=== PATIENT | female | born 1990 | race African-American/Black ===

== ENCOUNTER 2024-09-02 08:37 | Emergency (ER) | payer OTHER, SELFPAY ==
[2024-09-02 08:50] VITALS: BP 116/75; PULSE 100; RESP 16; TEMP 36.3; O2SAT 95; BMI 27.8
[2024-09-02 09:20] LABS: IDNOW Serial# 58CA691E; Strep A Nucleic Acid Negative (Negative)
[2024-09-02 10:02] LABS: Influenza A PCR NEGATIVE (Negative); Influenza B PCR NEGATIVE (Negative); Resp Syncy Virus RNA Qual PCR NEGATIVE (Negative); SARS COV2 PCR INHOUSE NEGATIVE (Negative)
--- NOTE | 2024-09-02 10:46 | ED.GENADULT ---
HPI - General Adult General Chief complaint: General Medical Stated complaint: sore throat Time Seen by Provider: 09/02/24 10:46 Source: patient and RN notes reviewed Mode of arrival: ambulatory Limitations: no limitations History of Present Illness ED Provider: Diana Del Real PA-C HPI narrative: This is a 34-year-old female who presents emergency department for evaluation of throat pain which began 2 days ago. Patient feels as though she was strep throat. No known sick contacts. Patient reports that she shared drink with an individual in his concerned that she picked up a bacterial infection. She denies any fevers, chills, chest pain, shortness of breath, cough, abdominal pain, nausea, vomiting or diarrhea. Patient reports that she was still able to swallow however endorses pain. She did not take any medications prior to her arrival today. Denies any profound fatigue. No sick contacts. No other complaints or concerns at this time. MD complaint: Sore throat Onset (ago): day(s) Severity: mild Quality: aching Pain Consistency: constant Relieving factors: none Exacerbating factors: none Associated symptoms: denies other symptoms Treatments prior to arrival: none Related Data Previous Rx's ?Medication ?Instructions ?Recorded acetaminophen 500 mg tablet 1,000 mg (2 x 500 mg) PO Q8H PRN 09/02/24 (Tylenol Extra Strength) pain #30 tabs amoxicillin 500 mg capsule 500 mg PO BID 10 days #20 caps 09/02/24 ibuprofen 600 mg tablet 600 mg PO Q6H PRN fever or pain 09/02/24 #30 tabs Allergies Allergy/AdvReac Type Severity Reaction Status Date / Time No Known Allergies Allergy Verified 09/02/24 08:50 [No Known Allergies*] Review of Systems Review of Systems: Constitutional: No Weight loss, No Fever, No Chills, No Night Sweats, No Fatigue, No Malaise ENT/Mouth: No Hearing loss, No Ear Pain, No Nasal Congestion, No Sinus Pain, No Hoarseness, + sore throat, No Rhinorrhea, No Swallowing Difficulty Eyes: No Eye Pain, No Swelling, No Redness, No Foreign Body, No Discharge, No Vision Changes Cardiovascular: No Chest Pain, No SOB, No Dyspnea on Exertion, No Orthopnea, No Edema, No Palpitations Respiratory: No Cough, No Sputum, No Wheezing, No Smoke Exposure, No Dyspnea Gastrointestinal: No Nausea, No Vomiting, No Diarrhea, No Constipation, No Abdominal pain, No Hematochezia, No Melena Genitourinary: No irregular bleeding, No Dysuria, No Urinary Frequency, No Hematuria, No Urinary Incontinence/retention, No Urgency, No Flank Pain, No Urinary Flow Changes, No Hesitancy Musculoskeletal: No joint pain, No Myalgias, No Joint Swelling Skin: No Skin Lesions, No rash Neuro: No Weakness, No Numbness, No Paresthesias, No Loss of Consciousness, No Dizziness, No Headache Psych: No Anxiety/Panic, No Depression, No SI/HI/AH/VH, No Social Issues, Heme/Lymph: No Bruising, No Bleeding,No Lymphadenopathy Endocrine: No Polyuria, No Polydipsia, No Temperature Intolerance Yes all other systems are reviewed and are negative Constitutional: Constitutional: Reports as per [facility] Social History Social History Advance Directives: No Advance Directives Information Provided: Yes Do you have a plan to hurt others: No Plan Physical Exam ED Vital Signs: Vital Signs - 24 hr 09/02/24 08:50 Temperature 97.3 F Pulse Rate 100 Respiratory Rate 16 Blood Pressure 116/75 Pulse Oximetry 95 Oxygen Delivery Method Room Air BMI result Body Mass Index 27.8 Const General: cooperative, comfortable and no acute distress Orientation/consciousness: patient oriented x3 Limitations: no limitations HENMT Other: Bilateral tonsils are exudative, and 1+ bilaterally. Uvula is midline. Posterior oropharynx is erythematous. Airway is widely patent. No trismus, drooling, or dysphonia. Anterior cervical lymphadenopathy noted. Head: Yes normal to inspection, Yes normocephalic and Yes atraumatic Ears: hearing grossly normal bilaterally General nose exam: Normal external nose present Face and sinus: Yes normal facial exam Eyes General: appearance normal, both eyes and all related structures Eyelids: Yes eyelids normal Conjunctivae: conjunctivae normal Sclerae: sclerae normal Pupils: Equal, round and reactive pupils present EOM: EOMs intact bilaterally Neck Neck: Yes normal visual inspection, Yes full ROM and Yes no lymphadenopathy Lymphatic: no lymphadenopathy noted Chest Chest palpation & inspection: normal inspection of the chest Resp Effort & Inspection: normal respiratory effort and able to speak in complete sentences Auscultation: clear to auscultation bilaterally, no crackles, no rales, no rhonchi and no wheezes Cardio Rate: regular rate Rhythm: regular rhythm Heart sounds: S1 normal heart sound present and S2 normal heart sound present GI Inspection: Yes normal to inspection Skin General skin exam: no rashes or lesions noted Trauma: no lacerations or abrasions Wounds: no wounds Neuro General: patient oriented x3 and moves all extremities Cranial nerves: Yes Equal, round and reactive pupils present Extrem General: Yes normal to inspection Right upper extremity: normal to inspection Left upper extremity: normal to inspection Right lower extremity: normal to inspection Left lower extremity: normal to inspection Medical Decision Making Medical Decision Making [facility] Narrative: This is a 34-year-old female who presents emergency department for evaluation of sore throat which started 2 days ago. On arrival, vital signs within normal limits. She is speaking full sentences under no acute distress. Posterior oropharynx is erythematous and exudative. Differential diagnoses include strep pharyngitis, tonsillitis, COVID, flu, [employer]. Uvula is midline. She has handling secretions well without any difficulty. Viral swabs were obtained as well as strep swab which were negative. Patient also expressing concerns for sexually transmitted infection, will obtain gonorrhea and chlamydia testing however she states that she was concerned for this as she shared a drink, this is unlikely the process. Likely bacterial tonsillitis. Will treat with amoxicillin. Given a dose of Decadron in the department today. Advised to alternate between ibuprofen and or Tylenol as needed for pain and fevers. Advised to take the full course of antibiotics. Given strict return precautions. She understands and agrees with plan. Patient stable for discharge. Differential Diagnosis Differential Diagnoses: The differential diagnosis associated with the presentation includes See above Lab Data [facility] Lab Attestation statement: I reviewed the patient's lab results. Negative Labs: Lab Results 09/02/24 Range/Units 09:01 Influenza Type A (PCR) NEGATIVE (Negative) Influenza Type B (PCR) NEGATIVE (Negative) RSV RNA Qual (PCR) NEGATIVE (Negative) SARS-CoV-2 RNA (RT-PCR) NEGATIVE (Negative) S. pyogenes GrpA JOVAN Negative (Negative) Discharge Plan Discharge Clinical Impression: Acute tonsillitis Patient Disposition: Home, Self-Care Instructions: Tonsillitis (ED) Additional Instructions: You were seen in the emergency department due to a sore throat. You tested negative for COVID, flu, RSV and strep. You likely have a bacterial infection. You can have many bacterial infections that are not a Strep A infection. We are treating you for a bacterial throat infection with antibiotics. Please take prescribed medication as directed, amoxicillin is an antibiotic, take this twice a day. You received your 1st dose in the department today. Take your 2nd dose tonight. You also received a dose of dexamethasone which is a oral steroid, this helps decrease inflammation and stays in your system for several days. Alternate between ibuprofen and or Tylenol as needed for pain, and fevers. You may take ibuprofen 600 mg every 6 hours, 2 hours after taking the ibuprofen, you can take Tylenol 1 g - you can take Tylenol every 8 hours. Alternating between both of these medications can help achieve pain management and fever management. We will call you with any abnormal results from your testing today. Please be advised that this is likely contagious. Throw away your toothbrush after being on the antibiotics for 48 hours. Drink plenty of fluids and get plenty of rest. If any new or worsening symptoms occur please seek emergent care. Prescriptions: New amoxicillin 500 mg capsule 500 mg PO BID 10 Days Qty: 20 0RF acetaminophen [Tylenol Extra Strength] 500 mg tablet 1,000 mg PO Q8H PRN (Reason: pain) Qty: 30 0RF ibuprofen 600 mg tablet 600 mg PO Q6H PRN (Reason: fever or pain) Qty: 30 0RF Print Language: Khmer
[2024-09-02] MEDS: Amoxicillin 500 MG CAPSULE PO (11:43)
[2024-09-02] MEDS: dexAMETHasone sod phosphate 10 MG/ML VIAL PO (11:43)
[2024-09-02 11:55] VITALS: BP 106/75; PULSE 96; RESP 16; TEMP 36.5; O2SAT 98
[2024-09-02 11:56] VITALS: BP 106/75; PULSE 96; RESP 16; TEMP 36.5; O2SAT 98
--- OUTSIDE RECORDS SUMMARY | 2024-09-02 12:45 | XMS_ITS | Clinical Summary ---
Author Organization [facility] [address] [facility] Address [address] [place] [phone] Phone Care Team Providers Care Senior Accounts Payable Clerk Name Role Phone Nenita Taylor MD Primary Care Provider [phone] Allergies No known active allergies Medications desogestreL-eth inyl estradioL (Apri) 0.15-0.03 mg per tablet Take 1 tablet by mouth. 3 Active fexofenadine (KYLE) 180 mg tablet Take 1 tablet (180 mg total) by mouth 1 (one) time each day. 0 Active cholecalciferol (VITAMIN D-3) 25 mcg (1,000 unit) tabletIndicatio ns:Vitamin D deficiency Take 1 tablet (1,000 Units total) by mouth 1 (one) time each day. 90 tablet 3 5 Active Additional Information Patient not taking.Reported on 07/30/2024 ergocalciferol (VITAMIN D-2) 1,250 mcg (50,000 unit) capsuleIndicati ons:Vitamin D deficiency Take 1 capsule (50,000 Units total) by mouth 1 (one) time per week. 6 capsule 5 08/30/19 25 Additional Information Patient not taking.Reported on 07/30/2024 Active Problems Problem Noted Date Diagnosed Date LGSIL on Pap smear of cervix 07/17/2020 Overview (03/22/2024): Colpo ROOSEVELT 1 07/3020: repeat pap in one year Chronic urticaria 12/17/2019 Dermatographism 12/17/2019 Depression 08/21/2019 Overview (03/22/2024): Follows with behavioral therapy Bacterial vaginosis 06/07/2019 Overview (03/22/2024): Last Assessment & Plan: Treated with Metrogel per pt request. Anxiety 01/25/2017 Overview (03/22/2024): Last Assessment & Plan: She resuested referral back to behavioral health as she no longer has a provider. She denies SI, HI. Referral palced. She was informed that she should hear back in 1- 2 weeks with an appointment date. If not, she should call back to our office and inquire on getting this arranged. She voiced understanding and agreed. 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 Encounters Date Type Department Care Team Description 07/30/2024 9:30 AM EDT Office Visit Obstetrics and Gynecology - [facility] [address] [place] [address] Edilia Perez, VAN Vaginal discharge (Primary Dx); Vaginal yeast infection 07/18/2024 9:00 AM EDT Office Visit Adult Medicine [address] [phone] Shlomo Al PA Vitamin D deficiency (Primary Dx); Lip lesion; Abdominal bloating from Last 3 Months Immunizations Name Administration Dates Next Due PPD Test 08/12/2016 Tdap Tetanus diptheria acell ular pertussis (Boostrix; Adacel) 7yo and older 10/02/2014 Surgical History Surgery Date Site/Laterality Comments OTHER SURGICAL HISTORY PROCEDURE: CO EXC B9 LES MRGN XCP SK TG F/E/E/N/L/M 0.6-1.0CM; COMMENT: left eyebrown Medical History Medical History Date Comments 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 Lamar Gestational diabetes DX:Gestatio nal diabetes Anxiety 01/25/2017 Family History Medical History Relation Name Comments Other: hepatitis Father cirrhosis Thyroid disease Mother anemia, cirr hosis, fatty liver, h/o etoh Throat cancer Mother's side uncle Blindness Neg Hx Breast cancer Neg Hx Cataracts Neg Hx Colon cancer Neg Hx Glaucoma Neg Hx Macular degeneration Neg Hx Ovarian cancer Neg Hx sister with ? cyst Strabismus Neg Hx Uterine cancer Neg Hx Relation Name Status Comments Father Mother Alive Mother's side Social History Tobacco Use Types Packs/Day Years Used Date Smoking Tobacco: Never Smokeless Tobacco: Never Alcohol Use Standard Drinks/Week Comments Yes 0 (1 standard drink = 0.6 oz pur e alcohol) Housing Instability Answer Date Recorde d Are you worried that in the next 2 months you may not have stable housing? Patient declined 03/27/2024 Food Access & Nutrition Answer Date Rec orded Do you have access to a vari ety of food including fruits and vegetables? Yes 03/27/2024 Access to Healthcare Answer Date Record ed Within the last 3 months, ho w many times did you visit the emergency department for your medical care? 0 03/27/2024 Health Literacy Answer Date Recorded How often do you need to hav e someone help you when you read instructions, pamphlets, or other written material from your doctor or pharmacy? Never 03/27/2024 Caregiver: How often do you need to have someone help you when you read instructions, pamphlets, or other written material from your doctor or pharmacy? Not on file 03/27/2024 Financial Risk Answer Date Recorded How hard is it for you to pa y for the very basics like food, housing, medical care, and air conditioning / heating? Somewhat hard 03/27/2024 Transportation Answer Date Recorded Has the lack of transportati on kept you from meetings, work, or from getting things needed for daily living? No Has the lack of transportati on kept you from medical appointments or from getting medications? No 03/27/2024 Social Isolation Answer Date Recorded How often do you feel lonely or isolated from those around you? Sometimes 03/27/2024 Food Risk Answer Date Recorded Within the past 12 months we worried whether our food would run out before we got money to buy more. Never true 03/27/2024 Within the past 12 months th e food we bought just didn't last and we didn't have money to get more. Never true 03/27/2024 Dependent Care Answer Date Recorded Do you need help finding or paying for care for your loved ones. For example, child development assistant or elderly care for an older adult? Yes 03/27/2024 Education Answer Date Recorded Do you think completing more education or training, like finishing a GED, going to college, or learning a trade, would be helpful for you? Patient declined 03/27/2024 Employment and Income Answer Date Recor ded During the last four weeks, have you been actively looking for work? No 03/27/2024 Living Situation Answer Date Recorded What is your living situation? 1 05/27/2023 Comments No Sex and Gender Information Value Date Recorded Sex Assigned at Female 03/27/2024 6:08 PM EST Legal Sex Female 9:59 AM EST Gender Identity Female 03/27/2024 6:08 PM EST Sexual Orientation Not on file Obstetrics History Para Term AB IAB SAB Ectopic Multiple Livin g Live Births 4 2 2 0 2 2 0 0 0 2 2 Date Outcome GA Total Labor Labor/2nd/3rd Weight Sex Type Anes PTL Lilian A1 A5 Name Clin 2008 IAB 2009 Term 40w 0d 3430 g (121 oz) M Vag-S pont Epidur al N Livin g Jadis Delivery Location:[facility] 2021 Term M Livin g 2023 IAB Last Filed Vital Signs Vital Sign Reading Time Taken Comments Blood Pressure 113/83 07/30/2024 9:34 AM EDT Pulse 92 07/30/2024 9:34 AM EDT Temperature 36.2 ??C (97.1 ??F) 07/18/2024 9:16 AM ED T Respiratory Rate 12 07/18/2024 9:16 AM EDT Oxygen Saturation 99% 07/18/2024 9:16 AM EDT Inhaled Oxygen Concentration - - Weight 74.4 kg (164 lb) 07/30/2024 9:34 AM EDT Height 162.6 cm (5' 4 ) 07/18/2024 9:16 AM EDT Body Mass Index 28.15 07/18/2024 9:16 AM EDT Plan of Treatment Upcoming Encounters Date Type Department Care Team (Late st Contact Info) Description 09/17/2024 10:30 AM EDT Office Visit Adult Medicine [facility] [place] [address] [place] [address] Norma Alatorre PA [address] [place] [address] Health Maintenance Due Date Last Done Comments COVID-19 Vaccine ( season) 2024 Influenza Vaccine (Season Ended) 2025 01/21/2009 Social Influencers of Health Screening 03/27/2025 03/27/2024 Depression Screening 07/29/2025 07/29/2024 Cervical Cancer Screening: Pap Smear 02/27/2026 02/27/2023, 06/24/2020 DTaP,Tdap,and Td Vaccines (8 - Td or Tdap) 04/26/2031 04/26/2021, 10/02/2014, 08/28/2001, Additional history exists HIB Vaccines Completed 05/08/1992 IPV Vaccines Completed 06/22/1995, 05/1993, 1989, Additional history exists MMR Vaccines Completed 06/22/1995, 05/08/1992 Hepatitis B Vaccines Completed 03/27/2001, 10/02/1997, 03/12/1997, Additional history exists Meningococcal ACWY Vaccine Completed 06/03/2008 HPV Vaccines Completed 03/05/2020, 09/2008, 06/03/2008 HIV Screening Completed 03/28/2024 Hepatitis C Screening Completed 03/28/2024 Hepatitis A Vaccines Aged Out No long er eligible based on patient's age to complete this topic Meningococcal B Vaccine Aged Out No l onger eligible based on patient's age to complete this topic Pneumococcal Vaccine: Pediatrics (0 to 5 Years) and At-Risk Patients (6 to 64 Years) Aged Out No longer eligible based on patient's age to complete this topic RSV Immunization Patients Under 20 months Aged Out No longer eligible based on patient's age to complete this topic Varicella Vaccines Aged Out No longer eligible based on patient's age to complete this topic Procedures Procedure Name Priority Date/Time Associated Diagnosis Comments TRICHOMONAS VAGINALIS ANTIGEN Routine 07/30/2024 9:58 AM EDT Vaginal discharge POC WET MOUNT Routine 07/30/2024 9:56 AM EDT Vaginal discharge HEPATITIS C ANTIBODY Routine 03/28/2024 10:25 AM EST Screening examination for STI Lip lesion HIV 1, 2 ANTIBODY, P24 ANTIGEN WITH REFLEX TO DIFFERENTIATION Routine 03/28/2024 10:25 AM EST Screening examination for STI Lip lesion PAP SMEAR Routine 06/24/2020 from Last 3 Months or Most Recently Relevant to Health Maintenance Results * Trichomonas vaginalis antigen (07/30/2024 9:58 AM EDT) Trichomonas vaginalis Negative Negative 07/30/2024 8:34 PM EDT [facility] Swab Vaginal structure / Unknown Non-blood Collection / Unknown 07/30/2024 9:58 AM EDT 07/30/2024 9:58 AM EDT Edilia PAT LAB MICROBIOLOGY - GENE RAL ORDERABLES Final Result [facility] [address] [place] [address], * (ABNORMAL) POC [place] (07/30/2024 9:56 AM EDT) Trichomonas, Wet Prep POC Absent Absent Yeast, Wet Prep POC Positive(A) Not Applicable, Negative Clue Cells, Wet Prep POC Negative Not Applicable, Negative WBC, Wet Prep POC Not Applicable Not Applicable, Negative RBC, Wet Prep POC Not Applicable Not Applicable, Negative Bacteria, Wet Prep POC Not Applicable Not Applicable, Negative Whiff Test, Wet Prep POC Negative Not Done, Negative PH FL Type POC 4.5 EXPIRATION DATE POC 07/30/2024 LOT NUMBER POC 07/30/2024 Vaginal Fluid Vaginal structure / Unknown 07/30/2024 9:56 AM EDT Edilia Perez [facility] POINT OF CARE TEST ENTE R/EDIT ORDERABLES Final Result * Hepatitis C antibody (03/28/2024 10:25 AM EST) Hepatitis C Antibody Negative Negative LAB CHEMISTRY METHOD 03/28/2024 1:06 PM EST [facility] Blood Venous blood specimen / Unknown Venipuncture / Unknown 03/28/2024 10:25 AM EST 03/28/2024 10:25 AM EST Shlomo HUTCHINSON LAB BLOOD ORDERABLES Fin al Result Performing Organization Address [facility] Co de Phone Number [facility] [address] [place] [address], * HIV 1,2 antibody, p24 antigen with reflex to differentiation (03/28/2024 10:25 AM EST) Pathologist [facility] HIV Combo AB/AG Negative Negative LAB CHEMISTRY METHOD 03/28/2024 1:07 PM EST [facility] Blood Venous blood specimen / Unknown Venipuncture / Unknown 03/28/2024 10:25 AM EST 03/28/2024 10:25 AM EST Narrative [facility] - 03/28/2024 1:07 PM EST This assay is a 4th generation assay allowing for earlier detection of HIV infection by detecting the presence of the HIV-1 p24 antigen as well as the traditional antibodies to HIV type 1 (including group O) and type 2. ??Use of a 4th generation assay is the current CDC recommendation for HIV screening. Shlomo HUTCHINSON LAB BLOOD ORDERABLES Fin al Result Performing Organization Address [facility]/ZIP Co de Phone Number [facility] [address] [place] [address], * Pap smear (06/24/2020) 06/24/2020 Narrative HISTORICAL TESTING LAB RESULTING AGENCY - 07/02/2020 12:11 PM EST [id number] THINPREP PAP, IMAGED: LOW-GRADE SQUAMOUS INTRAEPITHELIAL LESION (LSIL) . ABUNDANT, PARTIALLY OBSCURING ACUTE INFLAMMATION. NOTE: RARE CELLS RAISE THE POSSIBILITY OF A MODERATE DYSPLASIA. CAROLE RUFF , CT(ASCP) (CASE SCREENED 06 29 2020) ALVARO QUINTANILLA M.D. , PATHOLOGIST (CASE ELECTRONICALLY SIGNED 07 01 2020) RESULT OF APTIMA HIGH RISK HPV ASSAY: HIGH RISK HPV: ??POSITIVE (SEROTYPES 16,18,31,33,35,39,45,51,52,56,58,59,66,68) RESULTS OF APTIMA HPV 16 AND 18/45 GENOTYPE ASSAY: HPV 16: ??NEGATIVE HPV 18/45: ??NEGATIVE COMPLETED ON 2020-06-29 ADEQUACY: SATISFACTORY ENDOCERVICAL/TRANSFORMATION ZONE COMPONENT PRESENT. SOURCE: THINPREP PAP HPV ANY DX: ??REFLEX 16 AND 18, CERVICAL, IMAGED CLINICAL INFORMATION: HPV ANY DIAGNOSIS. HORMONES, PAP HX NEG, LMP 06/05/20 [Z12.4, Z01.419] Lucille Vizcaino [facility] LAB CYTOLOGY ORDERABLES Final Result HISTORICAL TESTING LAB RESULTING AGENCY from Last 3 Months or Most Recently Relevant to Health Maintenance [place] [address] [place] [address] PLAN Care Teams Senior Accounts Payable Clerk Relationship Specialty Start Date End Date Nenita Taylor MD [address] [place] [id number] PCP - General Internal Medicine 03/22/24
[2024-09-06 16:48] LABS: C. Trachomatis RNA TMA, Throat NOT DETECTED; N. gonorrhoeae RNA TMA, Throat NOT DETECTED
== END 2024-09-02 12:03 | disposition home or self-care (01) ==
PROVIDERS: Physician Assistant Medical; Emergency Provider Emergency Medicine Emergency Medical Services; PCP Internal Medicine
DX: J03.90 Acute tonsillitis, unspecified (principal); Z03.818 Encounter for observation for suspected exposure to other biological agents ruled out
CPT/HCPCS: 0241U; 36415; 87491; 87591; 87651; 99283; J1100